=== PATIENT | male | born 1980 | race Two or more races ===

== ENCOUNTER 2021-09-20 13:26 | Emergency (ER) | payer OTHER ==
[2021-09-20] MEDS ORDERED: Lidocaine 1% with EPINEPHrine 1:100,000 50 ML MDV INFILT ONE (13:42)
[2021-09-20] MEDS ORDERED: Diphtheria,Pertussis(Acell),Tetanus Vaccine 0.5 ML Syringe IM ONE (13:52)
[2021-09-20] MEDS ORDERED: Bacitracin Oint 1 GM U/D Packet TOP ONE (13:52)
== END 2021-09-20 14:30 | disposition home or self-care (01) ==
LOC: JP.ED 13:26
DX: S60.551A Superficial foreign body of right hand, initial encounter (principal); F17.210 Nicotine dependence, cigarettes, uncomplicated; Z23 Encounter for immunization; W29.4XXA Contact with nail gun, initial encounter
CPT/HCPCS: 73130-26-RT; 73130-RT; 90471; 90715; 99281; 99283-25

== ENCOUNTER 2023-07-22 16:53 | Emergency (ER) | payer SELFPAY ==
[2023-07-22] MEDS: Lidocaine/Epineph/Tetracaine 3 ML Syringe TOP ONE (18:50)
[2023-07-22] MEDS: Bacitracin Oint 1 GM U/D Packet TOP ONE (18:50)
[2023-07-22] MEDS: Lidocaine 1% with EPINEPHrine 1:100,000 50 ML MDV SUBCUT STA (19:51)
[2023-07-22] MEDS: Sulfamethoxazole/Trimethoprim 800-160 MG Tab PO STA (20:21)
== END 2023-07-22 20:40 | disposition home or self-care (01) ==
LOC: JP.ED 16:53
DX: S60.851A Superficial foreign body of right wrist, initial encounter (principal); F17.210 Nicotine dependence, cigarettes, uncomplicated; Z91.013 Allergy to seafood; W45.8XXA Other foreign body or object entering through skin, initial encounter
CPT/HCPCS: 73100; 99283; A9270